=== PATIENT | female | born 1945 | race American Indian/Alaskan Native ===

== ENCOUNTER 2017-11-18 13:02 | Outpatient (CLI) | payer MEDICARE ==
--- NOTE | 2017-11-18 16:37 | XRay Report ---
FINAL REPORT EXAM: XR SPINE LUMBOSACRAL 4+V HISTORY: LOWER BACK PAIN TECHNIQUE: AP, lateral, bilateral oblique, and coned-down views of the lumbar spine PRIORS: None. FINDINGS: The vertebral body heights are well maintained. There is mild disc space narrowing L5-S1 and L2-L3. Bilateral facet joint degenerative changes from L3 through S1 are present. The alignment is normal. No evidence for spondylolysis or spondylolisthesis is seen. Pedicles are intact bilaterally at all levels. The paraspinal soft tissues are unremarkable. IMPRESSION: Degenerative disc changes at L2-L3 and L5-S1. Bilateral facet joint degenerative changes in the lower half the lumbar spine.
== END 2017-11-18 13:03 | disposition home or self-care (01) ==
LOC: XRAY 13:02
PROVIDERS: ATTEND Internal Medicine
DX: M47.896 Other spondylosis, lumbar region (principal); M12.88 Other specific arthropathies, not elsewhere classified, other specified site
CPT/HCPCS: 72110

== ENCOUNTER 2018-02-10 11:01 | Outpatient (CLI) | payer MEDICARE ==
--- NOTE | 2018-02-10 21:46 | Cat Scan Report ---
FINAL REPORT PROCEDURE: CT SINUSES WO CON TECHNIQUE: Computerized axial tomography of the paranasal sinuses was performed without contrast material. Axial, coronal, and sagittal multiplanar reformatted images were created from the original dataset. HISTORY: Chronic rhinitis COMPARISON: No prior studies are available for comparison. FINDINGS: There is evidence of a bilateral maxillary antrostomy. Bilateral inferior turbinate hypertrophy is identified. There is opacification of a few right anterior ethmoid air cells. No evidence of any bony erosion or destruction is identified. There is no significant deviation of the nasal septum. Bilateral orbital merino and contents including eye balls and retrobulbar structures are within normal limits. Bilateral temporomandibular joints demonstrate normal alignment. Bilateral mastoid air cells are clear. IMPRESSION: Impression Mild degree of right anterior ethmoidal chronic sinusitis No evidence of acute sinusitis Bilateral inferior turbinate hypertrophy
== END 2018-02-10 11:02 | disposition home or self-care (01) ==
LOC: CT 11:01
PROVIDERS: ATTEND Otolaryngology
DX: J32.2 Chronic ethmoidal sinusitis (principal); J34.3 Hypertrophy of nasal turbinates; E78.00 Pure hypercholesterolemia, unspecified; I10 Essential (primary) hypertension; J45.909 Unspecified asthma, uncomplicated; K21.9 Gastro-esophageal reflux disease without esophagitis; M19.90 Unspecified osteoarthritis, unspecified site; Z90.721 Acquired absence of ovaries, unilateral; Z90.89 Acquired absence of other organs
CPT/HCPCS: 70486

== ENCOUNTER 2018-11-01 10:46 | Inpatient (IN) | payer MEDICARE ==
--- NOTE | 2018-11-01 11:12 | Cat Scan Report ---
CT HEAD WITHOUT CONTRAST: HISTORY: Neurological deficit, stroke. TECHNIQUE: Sequential 2.5mm CT images. COMPARISON: none. FINDINGS: Cerebral Parenchyma: Mild nonspecific chronic white matter changes are identified in both frontal lobes. The remaining brain parenchyma demonstrates normal attenuation. Cerebellum: A chronic 1.4 cm infarct is identified in the posterior right cerebellum. There also appears to be a small subarachnoid cyst in the superior posterior fossa adjacent to the cerebellar vermis measuring up to 1.9 x 1.0 cm. Brainstem: Within normal limits. Ventricles: Normal. Sella: Normal. Extra-axial spaces: Normal. Basal Cisterns: Normal. Intracranial Hemorrhage: None. Midline Shift: None. Calvarium: Normal. Sinuses: Normal. Mastoid Air Cells: Normal. Visualized Orbits: Normal. IMPRESSION: No acute intracranial process. Mild nonspecific chronic white matter changes. Chronic right cerebellar infarct. Small posterior fossa arachnoid cyst of doubtful clinical significance. These findings were discussed with Dr. Foreman/Dr. Henry in the emergency department at 1106 hrs.
[2018-11-01 11:18] LABS: Basophils # (Auto) 0.1 K/mm3 (0.0-0.1); Eosinophils % (Auto) 0.5 % (0.0-4.3); Hematocrit 35.6 % (30.3-42.9); Hemoglobin 11.9 gm/dl (10.1-14.3); Lymphocytes # (Auto) 2.7 K/mm3 (1.2-5.4); Lymphocytes % (Auto) 41.6 % (13.4-35.0); Mean Corpuscular HGB Conc 34 % (30-34); Mean Corpuscular Volume 76 fl (79-97); Monocytes # (Auto) 0.5 K/mm3 (0.0-0.8); Monocytes % (Auto) 7.9 % (0.0-7.3); Platelet Count 311 K/mm3 (140-440); Red Cell Distribution Width 15.3 % (13.2-15.2)
--- NOTE | 2018-11-01 11:27 | Emergency Department Report ---
ED Neuro Deficit HPI - General Chief Complaint: Neuro Symptoms/Deficit Stated Complaint: LFT SIDE NUMB/KATE Source: patient Mode of arrival: Ambulatory Limitations: No Limitations - History of Present Illness Initial Comments: [facility] Date of service: 11/01/18 Impression: acute, transient L sided numbness - now resolved. concerning for R parietal TIA. Recommend admission for TIA. - - - Not a tpa candidate due to: NIHSS 0 with nondisabling symptoms. Presentation is not suggestive of Large Vessel Occlusive Disease. Thrombectomy would not be recommended. Differential Diagnosis: 1. Cardioembolic stroke 2. Small vessel disease/lacune 3. Thromboembolic, vibusl-om-rrvsni mechanism 4. Hypercoagulable state-related infarct 5. Transient ischemic attack 6. Thrombotic mechanism, large artery disease Comments: Door time: 1046 [facility] contacted: 1110 [facility] at bedside: 1113 NIHSS assessment time: 1117 Recommendations: tele ASA DVT proph - lovenox permissive htn PT/OT/speech bedside swallow eval Inpatient neurology consultation Inpatient stroke evaluation as per Neurology/ Internal Medicine Discussed with ED MD Please call with questions CC L sided numbness History of Present Illness Patient is a73 yo woman with acute onset L sided numbness, involving the face, arm, and leg, starting at approx 0800. She was awake when it started. She states the numbness started in her leg, then moved the arm and face, and then resolved in reverse. It took approx 1 hour to resolved. No LOC/convulsion. No trouble speaking/swallowing. Diagnostic: CT head pending. Exam: RESULT SUMMARY: 0 points NIH Stroke Scale INPUTS: 1A: Level of consciousness > 0 = Alert; keenly responsive 1B: Ask month and age > 0 = Both questions right 1C: 'Blink eyes' & 'squeeze hands' > 0 = Performs both tasks 2: Horizontal extraocular movements > 0 = Normal 3: Visual hernandez > 0 = No visual loss 4: Facial palsy > 0 = Normal symmetry 5A: Left arm motor drift > 0 = No drift for 10 seconds 5B: Right arm motor drift > 0 = No drift for 10 seconds 6A: Left leg motor drift > 0 = No drift for 5 seconds 6B: Right leg motor drift > 0 = No drift for 5 seconds 7: Limb Ataxia > 0 = No ataxia 8: Sensation > 0 = Normal; no sensory loss 9: Language/aphasia > 0 = Normal; no aphasia 10: Dysarthria > 0 = Normal 11: Extinction/inattention > 0 = No abnormality Medical Decision Making: - Extensive number of diagnosis or management options are considered above. - Extensive amount of complex data reviewed. - High risk of complication and/or morbidity or mortality are associated with differential diagnostic considerations above. - There may be Uncertain outcome and increased probability of prolonged functional impairment or high probability of severe prolonged functional impairment associated with some of these differential diagnosis. Medical Data Reviewed: 1.Data reviewed include clinical labs, radiology, Medical Tests; 2.Tests results discussed w/performing or interpreting physician; 3.Obtaining/reviewing old medical records; 4.Obtaining case history from another source; 5.Independent review of image, tracing or specimen. Patient was informed the Neurology Consult would happen via TeleHealth consult by way of interactive audio and video telecommunications and consented to receiving care in this manner. - Related Data Home Medications: Home Medications Medication Instructions Recorded Confirmed Last Taken Metoprolol [Lopressor TAB] 50 mg DAILY 03/30/13 10/22/15 10/22/15 08:00 50 mg Simvastatin 20 mg PO QDAY 03/30/13 10/22/15 10/22/15 08:00 amLODIPine [Norvasc] 5 mg PO DAILY 03/30/13 10/22/15 10/22/15 08:00 Aspirin 81 mg PO DAILY 10/22/15 10/22/15 10/22/15 08:00 Levothyroxine 50 mcg PO DAILY 10/22/15 10/22/15 10/22/15 08:00 Triamterene 1.75 mg PO DAILY 10/22/15 10/22/15 10/22/15 08:00 Previous Rx's Medication Instructions Recorded Last Taken Type Omeprazole [PriLOSEC] 20 mg PO QDAY #30 05/04/13 10/21/15 08:00 Rx Amoxicillin [Trimox CAP] 500 mg PO BID #14 capsule 10/22/15 Unknown Rx traMADol [Ultram] 50 mg PO Q6HR PRN #14 tablet 10/22/15 Unknown Rx Allergies/Adverse Reactions: Allergies Allergy/AdvReac Type Severity Reaction Status Date / Time Sulfa (Sulfonamide Allergy Severe Swelling Verified 05/04/13 07:36 Antibiotics) ED Review of Systems ROS: Stated complaint: LFT SIDE NUMB/KATE Other details as noted in HPI ED Past Medical Hx - Past Medical History Previous Medical History?: Yes Hx Hypertension: Yes (2006) Hx GERD: Yes Hx Renal Disease: No Hx Arthritis: Yes Hx Asthma: Yes - Surgical History Past Surgical History?: Yes Hx Pacemaker: Yes (PLACED 02/2009 MODEL NUM [id number] [employer] ) - Social History Smoking Status: Never Smoker Substance Use Type: None - Medications Home Medications: Home Medications Medication Instructions Recorded Confirmed Last Taken Type Metoprolol [Lopressor TAB] 50 mg DAILY 03/30/13 10/22/15 10/22/15 08:00 History 50 mg Simvastatin 20 mg PO QDAY 03/30/13 10/22/15 10/22/15 08:00 History amLODIPine [Norvasc] 5 mg PO DAILY 03/30/13 10/22/15 10/22/15 08:00 History Omeprazole [PriLOSEC] 20 mg PO QDAY #30 05/04/13 10/22/15 10/21/15 08:00 Rx Amoxicillin [Trimox CAP] 500 mg PO BID #14 capsule 10/22/15 Unknown Rx Aspirin 81 mg PO DAILY 10/22/15 10/22/15 10/22/15 08:00 History Levothyroxine 50 mcg PO DAILY 10/22/15 10/22/15 10/22/15 08:00 History Triamterene 1.75 mg PO DAILY 10/22/15 10/22/15 10/22/15 08:00 History traMADol [Ultram] 50 mg PO Q6HR PRN #14 tablet 10/22/15 Unknown Rx ED Neuro Physical Exam - General Limitations: No Limitations Suspected Stroke: Yes - NIHSS Assessment Interval: Baseline 1a. Level of Consciousness: alert/keenly responsive 1b. LOC Questions: answers both correctly 1c. LOC Commands: performs tasks correctly 2. Best Gaze: normal 3. Visual: no visual loss 4. Facial Palsy: normal symmetrical movement 5b. Motor Arm Right: no drift 5a. Motor Arm Left: no drift 6a. Motor Leg Left: no drift 6b. Motor Leg Right: no drift 7. Limb Ataxia: absent 8. Sensory: normal 9. Best Language: no aphasia 10. Dysarthria: normal 11. Extinction/Inattention: no abnormality Total Score: 0 Stroke Severity: No Stroke Symptoms - Lab Data Result diagrams: 11/01/18 11:14 Lab Results 11/01/18 11/01/18 Range/Units 11:00 11:14 Metcalfe % (Auto) 7.9 H (0.0-7.3) % Eos % (Auto) 0.5 (0.0-4.3) % Metcalfe # 0.5 (0.0-0.8) K/mm3 Eos # 0.0 (0.0-0.4) K/mm3 Baso # 0.1 (0.0-0.1) K/mm3 Seg Neutrophils % 49.0 (40.0-70.0) % Seg Neutrophils # 3.2 (1.8-7.7) K/mm3 POC Glucose 102 (70-105) Critical care attestation.: If time is entered above; I have spent that time in minutes in the direct care of this critically ill patient, excluding procedure time. ED Disposition Clinical Impression: TIA (transient ischemic attack) Disposition: -09 OP ADMIT IP TO THIS HOSP Is pt being admited?: Yes Condition: Stable
[2018-11-01 11:29] LABS: INR 0.96 (0.87-1.13)
[2018-11-01 11:30] LABS: Partial Thromboplastin Time 26.8 Sec. (24.2-36.6)
[2018-11-01 11:42] LABS: BUN/Creatinine Ratio 13; Blood Urea Nitrogen 15 mg/dL (7-17); Calcium 9.5 mg/dL (8.4-10.2); Hemolysis Index 20
[2018-11-01] MEDS ORDERED: PHENERGAN PR PRN (12:44)
[2018-11-01] MEDS ORDERED: SODIUM CHLORIDE FLUSH SYRINGE 10 ML IV PRN (12:44)
[2018-11-01] MEDS ORDERED: ZOFRAN IV PRN (12:44)
[2018-11-01] MEDS ORDERED: MILK OF MAGNESIA PO PRN (12:44)
[2018-11-01] MEDS ORDERED: DULCOLAX PR PRN (12:44)
[2018-11-01] MEDS ORDERED: TYLENOL PO PRN (12:44)
[2018-11-01] MEDS ORDERED: REGLAN PO PRN (12:44)
[2018-11-01] MEDS ORDERED: PROVENTIL IH PRN (12:44)
--- NOTE | 2018-11-01 12:44 | History and Physical Report ---
History of Present Illness Chief complaint: My left side got weak. History of present illness: 73 YO Female with HTN, GERD, OA, Asthma, Cardiomyopathy S/P Pacemaker placement presents to ED for evaluation. Pt states that she was in her usual state of health at bedtime around 2130hrs. Upon awakening from sleep around 0800hrs, the patient experienced weakness and numbness on her left side and that she is "unable to move the left side of her body". Pt transported to [facility] via private vehicle. Pt seen and evaluated in ED and a Code Stroke was called. The patient was found to have symptoms consistent with CVA. Pt is outside therapeutic window for TPA. Pt admitted to Telemetry and initiated on CVA protocol. Pt denies fever, chills, CP, Palpitations, NVD, Trauma, BRBPR, Productive cough, or recent ill contacts. Neurology consulted. Past History Past Medical History: arthritis, GERD, hypertension, other (Asthma, Cardiomyopathy) Past Surgical History: Other (Pacemaker placement) Social history: single. denies: smoking, alcohol abuse, prescription drug abuse Family history: no significant family history Medications and Allergies Allergies Allergy/AdvReac Type Severity Reaction Status Date / Time Sulfa (Sulfonamide Allergy Severe Swelling Verified 05/04/13 07:36 Antibiotics) Home Medications Medication Instructions Recorded Confirmed Last Taken Type RX: Metoprolol [Lopressor TAB] 50 mg DAILY 03/30/13 10/22/15 10/22/15 08:00 History 50 mg RX: Simvastatin 20 mg PO QDAY 03/30/13 10/22/15 10/22/15 08:00 History RX: amLODIPine [Norvasc] 5 mg PO DAILY 03/30/13 10/22/15 10/22/15 08:00 History RX: Omeprazole [PriLOSEC] 20 mg PO QDAY #30 05/04/13 10/22/15 10/21/15 08:00 Rx Aspirin 81 mg PO DAILY 10/22/15 10/22/15 10/22/15 08:00 History Levothyroxine 50 mcg PO DAILY 10/22/15 10/22/15 10/22/15 08:00 History RX: Amoxicillin [Trimox CAP] 500 mg PO BID #14 capsule 10/22/15 Unknown Rx Triamterene 1.75 mg PO DAILY 10/22/15 10/22/15 10/22/15 08:00 History traMADol [Ultram] 50 mg PO Q6HR PRN #14 tablet 10/22/15 Unknown Rx Review of Systems Constitutional: no weight loss, no weight gain, no fever, no chills Ears, nose, mouth and throat: no ear pain, no ear discharge, no tinnitis, no decreased hearing, no nose pain Breasts: no change in shape, no swelling, no mass Cardiovascular: no chest pain, no orthopnea, no palpitations, no rapid/irregular heart beat, no edema Respiratory: no cough, no excessive sputum, no hemoptysis Gastrointestinal: no nausea, no vomiting, no diarrhea, no constipation Genitourinary Female: no pelvic pain, no flank pain, no menorrhagia, no dysuria, no urinary frequency, no urgency Rectal: no pain, no incontinence, no bleeding Musculoskeletal: no neck stiffness, no neck pain, no shooting arm pain, no low back pain Integumentary: no rash, no pruritis, no redness, no sores, no wounds Neurological: paralysis, weakness, numbness, ataxia, gait dysfunction, motor disturbance Psychiatric: no anxiety, no memory loss, no change in sleep habits, no sleep disturbances, no insomnia Endocrine: no cold intolerance, no heat intolerance, no polyphagia Hematologic/Lymphatic: no easy bruising, no easy bleeding Allergic/Immunologic: no urticaria, no allergic rhinitis, no wheezing Exam - Constitutional Vitals: Temp Pulse Resp BP Pulse Ox 97.1 F L 71 20 146/76 96 11/01/18 11:33 11/01/18 12:00 11/01/18 12:15 11/01/18 12:15 11/01/18 12:15 General appearance: Present: mild distress - EENT Eyes: Present: PERRL ENT: hearing intact, clear oral mucosa - Neck Neck: Present: supple, normal ROM - Respiratory Respiratory effort: normal Respiratory: bilateral: CTA - Cardiovascular Heart Sounds: Present: S1 & S2. Absent: rub, click - Extremities Extremities: pulses symmetrical, No edema Peripheral Pulses: within normal limits - Abdominal General gastrointestinal: Present: soft, non-tender, non-distended, normal bowel sounds Female genitourinary: Present: normal - Integumentary Integumentary: Present: clear, warm, dry - Musculoskeletal Musculoskeletal: gait normal, strength equal bilaterally - Psychiatric Psychiatric: appropriate mood/affect, intact judgment & insight - Neurologic Neurologic: CNII-XII intact, moves all extremities Results - Labs CBC & Chem 7: 11/01/18 11:14 11/01/18 11:14 Labs: Abnormal lab results 11/01/18 11/01/18 Range/Units 11:14 11:14 MCV 76 L (79-97) fl MCH 25 L (28-32) pg RDW 15.3 H (13.2-15.2) % Lymph % (Auto) 41.6 H (13.4-35.0) % Cottle % (Auto) 7.9 H (0.0-7.3) % Carbon Dioxide 20 L (22-30) mmol/L Glucose 111 H (65-100) mg/dL Assessment and Plan - Patient Problems (1) CVA (cerebral vascular accident) Current Visit: Yes Status: Acute Qualifiers: Precerebral and cerebral artery: middle cerebral artery Laterality of affected vessel: right Plan to address problem: Stroke Protocol: CT Head, neuro checks, MRI Brain, MRA Brain, Echo, Carotid Doppler, lipid panel, antiplatelet therapy, PT/OT/Speech therapy, Neurology consulted in ED. Neuro checks, Permissive hypertension overnight. (2) Cardiomyopathy Current Visit: Yes Status: Acute Qualifiers: Cardiomyopathy type: unspecified Qualified Code(s): I42.9 - Cardiomyopathy, unspecified Plan to address problem: supportive care, Blood pressure control, monitor bp q shift, telemetry, (3) Osteoarthritis Current Visit: Yes Status: Acute Qualifiers: Laterality: bilateral Plan to address problem: pain control, supportive care, NSAID therapy as clinically indicated (4) DVT prophylaxis Current Visit: Yes Status: Acute Plan to address problem: SCD to BLE while in bed, prophylactic lovenox
--- NOTE | 2018-11-01 13:48 | Emergency Department Report ---
ED Neuro Deficit HPI - General Chief Complaint: Neuro Symptoms/Deficit Stated Complaint: LFT SIDE NUMB/KATE Time Seen by Provider: 11/01/18 11:26 Source: patient Mode of arrival: Ambulatory Limitations: No Limitations - History of Present Illness Initial Comments: This is a 73-year-old female who arrived as a "code stroke". She has the following recommendations and differential diagnosis as per teleneurologist: acute, transient L sided numbness - now resolved. concerning for R parietal TIA. Recommend admission for TIA. Not a tpa candidate due to: NIHSS 0 with nondisabling symptoms. Presentation is not suggestive of Large Vessel Occlusive Disease. Thrombectomy would not be recommended. Differential Diagnosis: 1. Cardioembolic stroke 2. Small vessel disease/lacune 3. Thromboembolic, [id number] mechanism 4. Hypercoagulable state-related infarct 5. Transient ischemic attack 6. Thrombotic mechanism, large artery disease Essentially, the patient tells me that at between 8 and 9 in the morning she experienced numbness of her left side. She had difficulty describing the sensory aberration. However she states that it did resolve within about 15 minutes. She states that she is additionally may have had difficulty moving her "feet". When asked which she stated it was her left foot. The difficulty in moving her feet or foot was of seconds duration. The patient denied headache. She denied neck pain. She denied difficulty with her speech. She is thought to have a history of previous stroke. At the time of my encounter the patient is asymptomatic. -: Gradual Location: left arm, left leg Presenting Symptoms: Absent: Weak/Paralyzed One Side, Sudden, Severe Headache, Blurred/Loss of Vision, Facial Droop/Numbness, Unable to Speak Clearly, Altered Mental Status History of same: Yes Place: home Severity: mild Quality: weak (either 1 foot or both), numb Improves With: rest (resolved spontaneously) Worsens With: none On Anticoagulants: No Context: gradual onset Associated Symptoms: denies other symptoms Treatments Prior to Arrival: none - Related Data Home Medications: Home Medications Medication Instructions Recorded Confirmed Last Taken Metoprolol [Lopressor TAB] 50 mg DAILY 03/30/13 10/22/15 10/22/15 08:00 50 mg Simvastatin 20 mg PO QDAY 03/30/13 10/22/15 10/22/15 08:00 amLODIPine [Norvasc] 5 mg PO DAILY 03/30/13 10/22/15 10/22/15 08:00 Aspirin 81 mg PO DAILY 10/22/15 10/22/15 10/22/15 08:00 Levothyroxine 50 mcg PO DAILY 10/22/15 10/22/15 10/22/15 08:00 Triamterene 1.75 mg PO DAILY 10/22/15 10/22/15 10/22/15 08:00 Previous Rx's Medication Instructions Recorded Last Taken Type Omeprazole [PriLOSEC] 20 mg PO QDAY #30 05/04/13 10/21/15 08:00 Rx Amoxicillin [Trimox CAP] 500 mg PO BID #14 capsule 10/22/15 Unknown Rx traMADol [Ultram] 50 mg PO Q6HR PRN #14 tablet 10/22/15 Unknown Rx Allergies/Adverse Reactions: Allergies Allergy/AdvReac Type Severity Reaction Status Date / Time Sulfa (Sulfonamide Allergy Severe Swelling Verified 05/04/13 07:36 Antibiotics) ED Review of Systems ROS: Stated complaint: LFT SIDE NUMB/KATE Other details as noted in HPI Constitutional: denies: chills, fever Eyes: denies: eye pain, eye discharge, vision change ENT: denies: ear pain, throat pain Respiratory: denies: cough, shortness of breath, wheezing Cardiovascular: denies: chest pain, palpitations Endocrine: no symptoms reported Gastrointestinal: denies: abdominal pain, nausea, diarrhea Genitourinary: denies: urgency, dysuria, discharge Musculoskeletal: denies: back pain, joint swelling, arthralgia Skin: denies: rash, lesions Neurological: as per HPI, weakness, numbness. denies: headache Psychiatric: denies: anxiety, depression Hematological/Lymphatic: denies: easy bleeding, easy bruising ED Past Medical Hx - Past Medical History Previous Medical History?: Yes Hx Hypertension: Yes (2006) Hx GERD: Yes Hx Renal Disease: No Hx Arthritis: Yes Hx Asthma: Yes - Surgical History Past Surgical History?: Yes Hx Pacemaker: Yes (PLACED 02/2009 MODEL NUM [id number] [email or web address] ) - Social History Smoking Status: Never Smoker Substance Use Type: None - Medications Home Medications: Home Medications Medication Instructions Recorded Confirmed Last Taken Type Metoprolol [Lopressor TAB] 50 mg DAILY 03/30/13 10/22/15 10/22/15 08:00 History 50 mg Simvastatin 20 mg PO QDAY 03/30/13 10/22/15 10/22/15 08:00 History amLODIPine [Norvasc] 5 mg PO DAILY 03/30/13 10/22/15 10/22/15 08:00 History Omeprazole [PriLOSEC] 20 mg PO QDAY #30 05/04/13 10/22/15 10/21/15 08:00 Rx Amoxicillin [Trimox CAP] 500 mg PO BID #14 capsule 10/22/15 Unknown Rx Aspirin 81 mg PO DAILY 10/22/15 10/22/15 10/22/15 08:00 History Levothyroxine 50 mcg PO DAILY 10/22/15 10/22/15 10/22/15 08:00 History Triamterene 1.75 mg PO DAILY 10/22/15 10/22/15 10/22/15 08:00 History traMADol [Ultram] 50 mg PO Q6HR PRN #14 tablet 10/22/15 Unknown Rx ED Neuro Physical Exam - General Limitations: No Limitations General appearance: alert, in no apparent distress Suspected Stroke: No (stroke is a consideration, more consistent with TIA) - Head Head exam: Present: atraumatic, normocephalic - Eye Eye exam: Present: normal appearance. Absent: scleral icterus - ENT ENT exam: Present: mucous membranes moist - Neck Neck exam: Present: normal inspection, other (no bruit appreciated). Absent: tenderness, meningismus - Respiratory Respiratory exam: Present: normal lung sounds bilaterally. Absent: respiratory distress - Cardiovascular Cardiovascular Exam: Present: regular rate, normal rhythm. Absent: systolic murmur, diastolic murmur, rubs, gallop - GI/Abdominal GI/Abdominal exam: Present: soft, normal bowel sounds. Absent: distended, tenderness, guarding, rebound, rigid - Extremities Exam Extremities exam: Present: normal inspection - Back Exam Back exam: Present: normal inspection - Neurological Exam Neurological exam: Present: alert, oriented X3, CN II-XII intact. Absent: motor sensory deficit - NIHSS Assessment Interval: Baseline 1a. Level of Consciousness: alert/keenly responsive 1b. LOC Questions: answers both correctly 1c. LOC Commands: performs tasks correctly 2. Best Gaze: normal 3. Visual: no visual loss 4. Facial Palsy: normal symmetrical movement 5b. Motor Arm Right: no drift 5a. Motor Arm Left: no drift 6a. Motor Leg Left: no drift 6b. Motor Leg Right: no drift 7. Limb Ataxia: absent 8. Sensory: normal 9. Best Language: no aphasia 10. Dysarthria: normal 11. Extinction/Inattention: no abnormality Total Score: 0 Stroke Severity: No Stroke Symptoms - Psychiatric Psychiatric exam: Present: normal affect, normal mood - Skin Skin exam: Present: warm, dry, intact, normal color. Absent: rash ED Course Vital Signs 11/01/18 11/01/18 11/01/18 11:07 11:15 11:30 Temperature Pulse Rate 76 73 Respiratory 17 22 Rate Blood Pressure 148/77 158/95 137/82 O2 Sat by Pulse 98 97 97 Oximetry 11/01/18 11/01/18 11/01/18 11:33 11:45 12:00 Temperature 97.1 F L Pulse Rate 80 72 71 Respiratory 16 22 20 Rate Blood Pressure 141/80 145/87 145/87 O2 Sat by Pulse 100 97 Oximetry 11/01/18 12:15 Temperature Pulse Rate Respiratory 20 Rate Blood Pressure 146/76 O2 Sat by Pulse 96 Oximetry - Reevaluation(s) Reevaluation #1: The patient had no recurrent symptoms while here in the emergency department. She certainly is at risk for cardioembolic phenomenon having a pacemaker and cardiomyopathy. However her NIH stroke score is 0. She has no indication for TPA. It is possible she had a TIA this morning. She will be admitted for further care and stroke evaluation by the hospitalist service. 11/01/18 14:00 - Lab Data Result diagrams: 11/01/18 11:14 11/01/18 11:14 Lab Results 11/01/18 11/01/18 11/01/18 Range/Units 11:00 11:14 11:14 WBC 6.6 (4.5-11.0) K/mm3 RBC 4.70 (3.65-5.03) M/mm3 Hgb 11.9 (10.1-14.3) gm/dl Hct 35.6 (30.3-42.9) % MCV 76 L (79-97) fl MCH 25 L (28-32) pg MCHC 34 (30-34) % RDW 15.3 H (13.2-15.2) % Plt Count 311 (140-440) K/mm3 Lymph % (Auto) 41.6 H (13.4-35.0) % [place] % (Auto) 7.9 H (0.0-7.3) % Eos % (Auto) 0.5 (0.0-4.3) % Baso % (Auto) 1.0 (0.0-1.8) % Lymph # 2.7 (1.2-5.4) K/mm3 [place] # 0.5 (0.0-0.8) K/mm3 Eos # 0.0 (0.0-0.4) K/mm3 Baso # 0.1 (0.0-0.1) K/mm3 Seg Neutrophils % 49.0 (40.0-70.0) % Seg Neutrophils # 3.2 (1.8-7.7) K/mm3 PT 13.4 (12.2-14.9) Sec. INR 0.96 (0.87-1.13) APTT 26.8 (24.2-36.6) Sec. Thrombin Time (15.1-19.6) Sec. Sodium (137-145) mmol/L Potassium (3.6-5.0) mmol/L Chloride (98-107) mmol/L Carbon Dioxide (22-30) mmol/L Anion Gap mmol/L BUN (7-17) mg/dL Creatinine (0.7-1.2) mg/dL Estimated GFR ml/min BUN/Creatinine Ratio % Glucose (65-100) mg/dL POC Glucose 102 (70-105) Calcium (8.4-10.2) mg/dL Troponin T (0.00-0.029) ng/mL 11/01/18 11/01/18 Range/Units 11:14 11:14 WBC (4.5-11.0) K/mm3 RBC (3.65-5.03) M/mm3 Hgb (10.1-14.3) gm/dl Hct (30.3-42.9) % MCV (79-97) fl MCH (28-32) pg MCHC (30-34) % RDW (13.2-15.2) % Plt Count (140-440) K/mm3 Lymph % (Auto) (13.4-35.0) % [place] % (Auto) (0.0-7.3) % Eos % (Auto) (0.0-4.3) % Baso % (Auto) (0.0-1.8) % Lymph # (1.2-5.4) K/mm3 [place] # (0.0-0.8) K/mm3 Eos # (0.0-0.4) K/mm3 Baso # (0.0-0.1) K/mm3 Seg Neutrophils % (40.0-70.0) % Seg Neutrophils # (1.8-7.7) K/mm3 PT (12.2-14.9) Sec. INR (0.87-1.13) APTT (24.2-36.6) Sec. Thrombin Time 16.3 (15.1-19.6) Sec. Sodium 137 (137-145) mmol/L Potassium 4.3 (3.6-5.0) mmol/L Chloride 100.4 (98-107) mmol/L Carbon Dioxide 20 L (22-30) mmol/L Anion Gap 21 mmol/L BUN 15 (7-17) mg/dL Creatinine 1.2 (0.7-1.2) mg/dL Estimated GFR 53 ml/min BUN/Creatinine Ratio 13 % Glucose 111 H (65-100) mg/dL POC Glucose (70-105) Calcium 9.5 (8.4-10.2) mg/dL Troponin T < 0.010 (0.00-0.029) ng/mL Interpretation: other (ventricular pacing with complete capture) - Radiology Data Radiology results: report reviewed IMPRESSION: No acute intracranial process. Mild nonspecific chronic white matter changes. Chronic right cerebellar infarct. Small posterior fossa arachnoid cyst of doubtful clinical significance. - Core Measures AMI Core Measures Followed: No Measure Exclusions: not indicated - Thrombolytic Inclusion/Exclusion Thrombolytic Contraindications: Rapidily Improving s/s Critical care attestation.: If time is entered above; I have spent that time in minutes in the direct care of this critically ill patient, excluding procedure time. ED Disposition Clinical Impression: TIA (transient ischemic attack) Cardiomyopathy Qualifiers: Cardiomyopathy type: unspecified Qualified Code(s): I42.9 - Cardiomyopathy, unspecified Disposition: OP ADMIT IP TO THIS HOSP Is pt being admited?: Yes Does the pt Need Aspirin: Yes Condition: Stable Time of Disposition: 14:01
[2018-11-01] MEDS ORDERED: ASPIRIN PO ONE ×2 (14:01→19:00)
--- NOTE | 2018-11-01 14:26 | XRay Report ---
AP CHEST: HISTORY: Hypertension A 3-lead pacemaker device is in position. AP view of the chest demonstrates a normal mediastinal and cardiac contour with clear lungs and normal bony and soft tissue structures. IMPRESSION: Unremarkable AP chest. No significant change since 10/22/15.
--- NOTE | 2018-11-01 15:39 | Vascular Lab Report ---
PROCEDURE: VL CAROTID DUPLEX BILAT TECHNIQUE: Carotid duplex Doppler ultrasound. Grayscale, color flow and spectral waveform imaging. HISTORY: stroke COMPARISON: None FINDINGS: There is no abnormal elevation of flow velocity involving right or left carotid arteries. The ICA/CCA velocity ratios are 0.75 and 0.66 on right and left respectively. There is a small amount of atheros clerotic plaque. Findings indicate stenoses without hemodynamic significance (less than 50% bilateral ly). Portable artery flow is antegrade bilaterally. There is incidental visualization of a thyroid cyst measuring about 5 mm. IMPRESSION: No evidence of hemodynamically significant stenosis. This document is electronically signed by Francine Jain MD., Nov 01 2018 03:37:03 PM ET
--- NOTE | 2018-11-01 16:20 | Progress Note ---
Subjective Date of service: 11/01/18 Interval history: patient seen and has lasrge deep white matter stroke of the right hemisphere no bleed she can not have an ECHO due to her having pacemaker await ECH to carotid u/s does not show stenosis full note dictated Objective - Vital Sign Vital Signs - 12hr 11/01/18 11/01/18 11/01/18 11:07 11:15 11:30 Temperature Pulse Rate 76 73 Respiratory 17 22 Rate Blood Pressure 148/77 158/95 137/82 O2 Sat by Pulse 98 97 97 Oximetry 11/01/18 11/01/18 11/01/18 11:33 11:45 12:00 Temperature 97.1 F L Pulse Rate 80 72 71 Respiratory 16 22 20 Rate Blood Pressure 141/80 145/87 145/87 O2 Sat by Pulse 100 97 Oximetry 11/01/18 12:15 Temperature Pulse Rate Respiratory 20 Rate Blood Pressure 146/76 O2 Sat by Pulse 96 Oximetry - Laboratory Findings CBC and BMP: 11/01/18 11:14 11/01/18 11:14 Abnormal Lab Findings: Abnormal Labs 11/01/18 11/01/18 11:14 11:14 MCV 76 L MCH 25 L RDW 15.3 H Lymph % (Auto) 41.6 H [place] % (Auto) 7.9 H Carbon Dioxide 20 L Glucose 111 H
--- NOTE | 2018-11-02 02:08 | Consultation ---
HISTORY OF PRESENT ILLNESS: This is a 73-year-old black female that entered [facility] with onset of severe weakness of the left side. She had acute onset of weakness while she was at home involving face, arm, and leg. She has a prior history of having a pacemaker insertion 5 years ago. Since this incident, she has had persistent weakness, double vision, problems with vision in the left eye. The patient had a very prominent weakness of her left side, the leg and then the arm. On reviewing her CT scan, there is area of hypodensity noted in the right deep white matter of the right hemisphere and this is quite well-visualized on several sequences, evidence of ischemic stroke being obviously present in the right hemisphere deep white matter in the frontal lobe. PHYSICAL EXAMINATION: HEENT: The patient has asymmetrical gaze with the left eye moved laterally. The patient has symmetrical arm strength. Motor tone symmetrical. Burner Tender strength is equal. Visual hernandez are full. She does have blurry vision in the left eye with the left eye turned outward, but she focuses with the right eye (family does think this is a new finding). IMPRESSION: Acute stroke, right cerebral hemisphere. She cannot have an MRI. Would recommend getting carotid artery ultrasound and look at the echocardiogram. There is a prior medical history of pacemaker insertion. The patient will review over the MRI. Echocardiogram will be interesting to review and that she has had prior history of pacemaker, although no history of atrial fibrillation. JOB# [id number] MARCEL/ZAK
[2018-11-02] MEDS: LOVENOX SUB-Q SCH (09:58)
[2018-11-02] MEDS ORDERED: LOVENOX SUB-Q SCH (10:00)
--- NOTE | 2018-11-02 16:07 | Progress Note ---
Subjective Date of service: 11/02/18 Interval history: I am aware of fact MRI cancelled as she has pacemaker recommend another CT of heas with contrst on Thursday Objective - Vital Sign Vital Signs - 12hr 11/02/18 11/02/18 04:32 11:50 Temperature 98.3 F 97.9 F Pulse Rate 69 87 Respiratory 16 18 Rate Blood Pressure 144/80 144/76 O2 Sat by Pulse 100 98 Oximetry - Laboratory Findings CBC and BMP: 11/01/18 11:14 11/01/18 11:14 Abnormal Lab Findings: Abnormal Labs 11/01/18 11/01/18 11:14 11:14 MCV 76 L MCH 25 L RDW 15.3 H Lymph % (Auto) 41.6 H [place] % (Auto) 7.9 H Carbon Dioxide 20 L Glucose 111 H
[2018-11-02 16:37] LABS: Chol/HDL Ratio 2.31 %
--- NOTE | 2018-11-02 18:44 | Progress Note ---
Assessment and Plan Assessment and plan: (1) CVA (cerebral vascular accident) Current Visit: Yes Status: Acute Qualifiers: Precerebral and cerebral artery: middle cerebral artery Laterality of affected vessel: right Plan to address problem: Stroke Protocol: CT Head, neuro checks, MRI Brain, MRA Brain, Echo, Carotid Doppler, lipid panel, antiplatelet therapy, PT/OT/Speech therapy, Neurology consulted in ED. Neuro checks, Permissive hypertension overnight. (2) Cardiomyopathy Current Visit: Yes Status: Acute Qualifiers: Cardiomyopathy type: unspecified Qualified Code(s): I42.9 - Cardiomyopathy, unspecified Plan to address problem: supportive care, Blood pressure control, monitor bp q shift, telemetry, (3) Osteoarthritis Current Visit: Yes Status: Acute Qualifiers: Laterality: bilateral Plan to address problem: pain control, supportive care, NSAID therapy as clinically indicated (4) DVT prophylaxis Current Visit: Yes Status: Acute Plan to address problem: SCD to BLE while in bed, prophylactic lovenox Plan of care reviewed with the patient and her nurse History Interval history: Patient seen and examined medical records reviewed Patient feels slightly better Neuro workup is in progress Unable to do MRI due to permanent pacemaker No new complaints ,vital signs stable Hospitalist Physical - Constitutional Vitals: Temp Pulse Resp BP Pulse Ox 98.6 F 84 18 135/87 100 11/02/18 16:55 11/02/18 16:55 11/02/18 16:55 11/02/18 16:55 11/02/18 16:55 General appearance: Present: no acute distress, well-nourished - EENT Eyes: Present: PERRL, EOM intact - Neck Neck: Present: supple, normal ROM - Respiratory Respiratory effort: normal Respiratory: bilateral: diminished, negative: rales, rhonchi, wheezing - Cardiovascular Rhythm: regular Heart Sounds: Present: S1 & S2 - Extremities Extremities: no ischemia, No edema - Abdominal General gastrointestinal: soft, non-tender, non-distended, normal bowel sounds - Integumentary Integumentary: Present: clear, warm - Psychiatric Psychiatric: appropriate mood/affect, cooperative - Neurologic Neurologic: CNII-XII intact, moves all extremities Results - Labs CBC & Chem 7: 11/01/18 11:14 11/01/18 11:14 Labs: Laboratory Last Values WBC 6.6 K/mm3 (4.5-11.0) 11/01/18 11:14 RBC 4.70 M/mm3 (3.65-5.03) 11/01/18 11:14 Hgb 11.9 gm/dl (10.1-14.3) 11/01/18 11:14 Hct 35.6 % (30.3-42.9) 11/01/18 11:14 MCV 76 fl (79-97) L 11/01/18 11:14 MCH 25 pg (28-32) L 11/01/18 11:14 MCHC 34 % (30-34) 11/01/18 11:14 RDW 15.3 % (13.2-15.2) H 11/01/18 11:14 Plt Count 311 K/mm3 (140-440) 11/01/18 11:14 Lymph % (Auto) 41.6 % (13.4-35.0) H 11/01/18 11:14 [place] % (Auto) 7.9 % (0.0-7.3) H 11/01/18 11:14 Eos % (Auto) 0.5 % (0.0-4.3) 11/01/18 11:14 Baso % (Auto) 1.0 % (0.0-1.8) 11/01/18 11:14 Lymph # 2.7 K/mm3 (1.2-5.4) 11/01/18 11:14 [place] # 0.5 K/mm3 (0.0-0.8) 11/01/18 11:14 Eos # 0.0 K/mm3 (0.0-0.4) 11/01/18 11:14 Baso # 0.1 K/mm3 (0.0-0.1) 11/01/18 11:14 Seg Neutrophils % 49.0 % (40.0-70.0) 11/01/18 11:14 Seg Neutrophils # 3.2 K/mm3 (1.8-7.7) 11/01/18 11:14 PT 13.4 Sec. (12.2-14.9) 11/01/18 11:14 INR 0.96 (0.87-1.13) 11/01/18 11:14 APTT 26.8 Sec. (24.2-36.6) 11/01/18 11:14 16.3 Sec. (15.1-19.6) 11/01/18 11:14 Sodium 137 mmol/L (137-145) 11/01/18 11:14 Potassium 4.3 mmol/L (3.6-5.0) 11/01/18 11:14 Chloride 100.4 mmol/L (98-107) 11/01/18 11:14 Carbon Dioxide 20 mmol/L (22-30) L 11/01/18 11:14 21 mmol/L 11/01/18 11:14 BUN 15 mg/dL (7-17) 11/01/18 11:14 1.2 mg/dL (0.7-1.2) 11/01/18 11:14 Estimated GFR 53 ml/min 11/01/18 11:14 13 % 11/01/18 11:14 Glucose 111 mg/dL (65-100) H 11/01/18 11:14 POC Glucose 102 (70-105) 11/01/18 11:00 Calcium 9.5 mg/dL (8.4-10.2) 11/01/18 11:14 < 0.010 ng/mL (0.00-0.029) 11/01/18 11:14 Triglycerides 214 mg/dL (2-149) H 11/02/18 15:47 Cholesterol 185 mg/dL (50-199) 11/02/18 15:47 85 mg/dL (50-130) 11/02/18 15:47 80 mg/dL (40-59) H 11/02/18 15:47 2.31 % 11/02/18 15:47 Active Medications - Current Medications Current Medications: Generic Name Dose Route Start Last Admin Trade Name Freq PRN Reason Stop Dose Admin Acetaminophen 650 mg 11/01/18 12:44 Tylenol PO Q4H PRN Pain, Mild (1-3) Albuterol 2.5 mg 11/01/18 12:44 Proventil IH Q3HRT PRN Shortness Of Breath Atorvastatin Calcium 40 mg 11/01/18 22:00 11/01/18 21:16 Lipitor PO 40 mg QHS NANDINI Administration Bisacodyl 10 mg 11/01/18 12:44 Dulcolax SC QDAY PRN Constipation Enoxaparin Sodium 40 mg 11/02/18 10:00 11/02/18 09:58 Lovenox SUB-Q 40 mg QDAY@1000 NANDINI Administration Magnesium Hydroxide 30 ml 11/01/18 12:44 Milk Of Magnesia PO Q4H PRN Constipation Metoclopramide HCl 10 mg 11/01/18 12:44 Reglan PO Q6H PRN Nausea And Vomiting Ondansetron HCl 4 mg 11/01/18 12:44 Zofran IV Q8H PRN Nausea And Vomiting Promethazine HCl 25 mg 11/01/18 12:44 Phenergan SC Q6H PRN Nausea And Vomiting Sodium Chloride 10 ml 11/01/18 12:44 Sodium Chloride Flush Syringe 10 Ml IV PRN PRN LINE FLUSH
--- NOTE | 2018-11-03 08:37 | Progress Note ---
Assessment and Plan Assessment and plan: --Acute CVA ; with strokelike symptoms Not a candidate for TPA , unable to obtain a modified due to the p.m. Recheck CT head with and without contrast as recommended by neurology rest of the neuro workup reviewed Neurology following physical therapy occupational therapy, --Cardiomyopathy ; ejection fraction 35-40% Continue current cardiac medications --PFO on ECHO, follow CT head with contrast Is positive for acute CVA, consider anticoagulation --Osteoarthritis ; pain control, supportive care, NSAID therapy as clinically indicated --Dyslipidemia; on statins --DVT prophylaxis ; SCD to BLE while in bed, prophylactic lovenox P Follow neuro workup , neurology evaluation and recommendations Plan of care reviewed with the patient and her nurse Hospitalist Physical - Constitutional Vitals: Temp Pulse Resp BP Pulse Ox 98.1 F 85 18 117/71 97 11/03/18 04:43 11/03/18 04:43 11/03/18 04:43 11/03/18 04:43 11/03/18 04:43 General appearance: Present: no acute distress, well-nourished Results - Labs CBC & Chem 7: 11/01/18 11:14 11/01/18 11:14 Labs: Laboratory Last Values WBC 6.6 K/mm3 (4.5-11.0) 11/01/18 11:14 RBC 4.70 M/mm3 (3.65-5.03) 11/01/18 11:14 Hgb 11.9 gm/dl (10.1-14.3) 11/01/18 11:14 Hct 35.6 % (30.3-42.9) 11/01/18 11:14 MCV 76 fl (79-97) L 11/01/18 11:14 MCH 25 pg (28-32) L 11/01/18 11:14 MCHC 34 % (30-34) 11/01/18 11:14 RDW 15.3 % (13.2-15.2) H 11/01/18 11:14 Plt Count 311 K/mm3 (140-440) 11/01/18 11:14 Lymph % (Auto) 41.6 % (13.4-35.0) H 11/01/18 11:14 [place] % (Auto) 7.9 % (0.0-7.3) H 11/01/18 11:14 Eos % (Auto) 0.5 % (0.0-4.3) 11/01/18 11:14 Baso % (Auto) 1.0 % (0.0-1.8) 11/01/18 11:14 Lymph # 2.7 K/mm3 (1.2-5.4) 11/01/18 11:14 [place] # 0.5 K/mm3 (0.0-0.8) 11/01/18 11:14 Eos # 0.0 K/mm3 (0.0-0.4) 11/01/18 11:14 Baso # 0.1 K/mm3 (0.0-0.1) 11/01/18 11:14 Seg Neutrophils % 49.0 % (40.0-70.0) 11/01/18 11:14 Seg Neutrophils # 3.2 K/mm3 (1.8-7.7) 11/01/18 11:14 PT 13.4 Sec. (12.2-14.9) 11/01/18 11:14 INR 0.96 (0.87-1.13) 11/01/18 11:14 APTT 26.8 Sec. (24.2-36.6) 11/01/18 11:14 16.3 Sec. (15.1-19.6) 11/01/18 11:14 Sodium 137 mmol/L (137-145) 11/01/18 11:14 Potassium 4.3 mmol/L (3.6-5.0) 11/01/18 11:14 Chloride 100.4 mmol/L (98-107) 11/01/18 11:14 Carbon Dioxide 20 mmol/L (22-30) L 11/01/18 11:14 21 mmol/L 11/01/18 11:14 BUN 15 mg/dL (7-17) 11/01/18 11:14 1.2 mg/dL (0.7-1.2) 11/01/18 11:14 Estimated GFR 53 ml/min 11/01/18 11:14 13 % 11/01/18 11:14 Glucose 111 mg/dL (65-100) H 11/01/18 11:14 POC Glucose 102 (70-105) 11/01/18 11:00 Calcium 9.5 mg/dL (8.4-10.2) 11/01/18 11:14 < 0.010 ng/mL (0.00-0.029) 11/01/18 11:14 Triglycerides 214 mg/dL (2-149) H 11/02/18 15:47 Cholesterol 185 mg/dL (50-199) 11/02/18 15:47 85 mg/dL (50-130) 11/02/18 15:47 80 mg/dL (40-59) H 11/02/18 15:47 2.31 % 11/02/18 15:47 Active Medications - Current Medications Current Medications: Generic Name Dose Route Start Last Admin Trade Name Freq PRN Reason Stop Dose Admin Acetaminophen 650 mg 11/01/18 12:44 11/02/18 20:16 Tylenol PO 650 mg Q4H PRN Administration Pain, Mild (1-3) Albuterol 2.5 mg 11/01/18 12:44 Proventil IH Q3HRT PRN Shortness Of Breath Atorvastatin Calcium 40 mg 11/01/18 22:00 11/02/18 22:18 Lipitor PO 40 mg QHS NANDINI Administration Bisacodyl 10 mg 11/01/18 12:44 Dulcolax ME QDAY PRN Constipation Enoxaparin Sodium 40 mg 11/02/18 10:00 11/02/18 09:58 Lovenox SUB-Q 40 mg QDAY@1000 NANDINI Administration Magnesium Hydroxide 30 ml 11/01/18 12:44 Milk Of Magnesia PO Q4H PRN Constipation Metoclopramide HCl 10 mg 11/01/18 12:44 Reglan PO Q6H PRN Nausea And Vomiting Ondansetron HCl 4 mg 11/01/18 12:44 Zofran IV Q8H PRN Nausea And Vomiting Promethazine HCl 25 mg 11/01/18 12:44 Phenergan ME Q6H PRN Nausea And Vomiting Sodium Chloride 10 ml 11/01/18 12:44 11/02/18 22:18 Sodium Chloride Flush Syringe 10 Ml IV 10 ml PRN PRN Administration LINE FLUSH
[2018-11-03] MEDS: LOVENOX SUB-Q SCH (10:28)
--- NOTE | 2018-11-03 10:43 | Cat Scan Report ---
CT head with and without IV contrast: Neuro deficits. Comparison made to unenhanced images on November 01, 2018. The unenhanced axial images demonstrates diminished periventricular white matter changes bilaterally. These appear to be slightly worse in the right frontal lobe but it is unclear as to whether there is an actual focal abnormality in this area. In the right vermis there is an elongated circumscribed hypodensity which on the current image measures 2.1 cm compared to the prior exam measuring 1.9 cm. This may be a technical difference. The right frontal region is unchanged as is the remainder of the exam which is not otherwise remarkable. IV injected contrasted axial images demonstrates an unremarkable arterial phase. No evidence of vascular occlusion or abnormal vascular enhancement identified. Impression: 1. White matter ischemic changes most likely explaining the asymmetry in the right frontal lobe. 2. No evidence of vascular occlusion. 3. Stable unenhanced scan compared to prior study.
[2018-11-03 15:42] VITALS: BP 142/77
--- NOTE | 2018-11-03 16:08 | Discharge Summary ---
Providers - Providers Date of Admission: 11/01/18 12:44 Date of discharge: 11/03/18 Attending physician: STEVEN TOMAS 11/01/18 Consult to Physician [CONS] Routine Comment: Consulting Provider: DEDE MAURER Physician Instructions: Reason For Exam: cva 11/01/18 12:44 Occupational Therapy Evaluate and Treat [CONS] Routine Comment: Reason For Exam: Neuro deficits Physical Therapy Evaluation and Treat [CONS] Routine Comment: Reason For Exam: Neuro deficits Primary care physician: ANA ARREDONDO Hospitalization Reason for admission: Left sided weakness Condition: Stable Pertinent studies: CT head/brain WO CT brain with contrast: white mater ischemic changed Rt frontal lobe ECHO Doppler carotid CXR Hospital course: 73 YO Female with HTN, GERD, OA, Asthma, Cardiomyopathy S/P Pacemaker placement was admitted through ER with the c/o weakness and numbness on her left side and that she is "unable to move the left side of her body".evaluated in ED and a Code Stroke was called. The patient was found to have symptoms consistent with CVA.Not a candidate for TPA. Pt admitted to Telemetry and initiated on CVA protocol had neuro w/u.Unable to get MRI in view of PPM.Patient had CT brain with contrast,no acute abnormality. Patient symptomatically managed,PT evaluated,no PT needs at this point, Advised out pt PT if new weakness is noted,to be evaluated by PMD. 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 Today patient is comfortable,no new complaints,vital signs noted Stable at discharge. Discharge Diagnosis: --Acute CVA ; Left sided weakness Not a candidate for TPA , Aspirin and statin ,unable to obtain MRI due to PPM CT head with and without contrast : Rt frontal ischemic changes. 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 upon DC --Osteoarthritis ; pain control, supportive care, NSAID therapy as clinically indicated --Dyslipidemia; on statins --DVT prophylaxis ; SCD to BLE while in bed, prophylactic lovenox Disposition: - TO HOME OR SELFCARE Time spent for discharge: 32 min Core Measure Documentation - Palliative Care Palliative Care/ Comfort Measures: Not Applicable - Core Measures Any of the following diagnoses?: stroke - Stroke Discharge Requirements Statin for LDL = or >70 mg/dl on DC: Yes Anticoag for atrial fib/atrial flutter: No (No afib/a flutter) Reason for no anticoag for AF/F on DC: Not Indicated Antithrombotic for ischemic stroke: Yes Exam - Constitutional Vitals: Temp Pulse Resp BP Pulse Ox 98.4 F 82 20 142/77 100 11/03/18 15:41 11/03/18 15:41 11/03/18 15:41 11/03/18 15:41 11/03/18 15:41 General appearance: Present: no acute distress, well-nourished - EENT Eyes: Present: PERRL, EOM intact - Neck Neck: Present: supple, normal ROM - Respiratory Respiratory effort: normal Respiratory: bilateral: diminished, negative: rales, rhonchi, wheezing - Cardiovascular Rhythm: regular Heart Sounds: Present: S1 & S2 - Extremities Extremities: no ischemia, No edema Plan Activity: advance as tolerated, fall precautions Diet: other (cardiac diet) Additional Instructions: Patient advised to see her private member of the legislative [employer] in 1 week Follow up with: ANA ARREDONDO MD [Primary Care Provider] - 7 Days DEDE MAURER MD [Staff Physician] - 7 Days Prescriptions: diphenhydrAMINE [Benadryl CAP] 25 mg PO Q6HR PRN #20 capsule PRN Reason: Itching
== END 2018-11-03 19:01 | disposition home or self-care (01) | DRG 65 ==
LOC: ED 10:46 → 4A 12:44
PROVIDERS: ADMIT Internal Medicine; ATTEND Internal Medicine
DX: I63.9 Cerebral infarction, unspecified (principal); I42.9 Cardiomyopathy, unspecified; Q21.1 Atrial septal defect; M19.90 Unspecified osteoarthritis, unspecified site; E78.5 Hyperlipidemia, unspecified; I10 Essential (primary) hypertension; K21.9 Gastro-esophageal reflux disease without esophagitis; J45.909 Unspecified asthma, uncomplicated; Z95.0 Presence of cardiac pacemaker; Z88.2 Allergy status to sulfonamides; Z79.899 Other long term (current) drug therapy
CPT/HCPCS: 36415; 70450; 70470; 71045; 80048; 80061; 82962; 84484; 85025; 85610; 85670; 85730; 93005; 93010; 93306; 93880; G0378; A9270-GY; J1650; Q9967

== ENCOUNTER 2020-07-07 09:43 | Emergency (ER) | payer MEDICARE ==
--- NOTE | 2020-07-07 10:20 | Event Note ---
ED Screening Note Date of service: 07/07/20 Time: 10:00 ED Screening Note: 74-year-old -[place] female presents to the emergency room for 1 month history of body aches intermittent shortness of breath recent loss of taste and smell and diarrhea. Last Covid test was New Year[facility] Stefani but never got the results. She does have a primary care provider Dr. Mcconnell but has not followed up with him. This initial assessment/diagnostic orders/clinical plan/treatment(s) is/are subject to change based on patients health status, clinical progression and re- assessment by fellow clinical providers in the ED. Further treatment and workup at subsequent clinical providers discretion. Patient/guardian urged not to elope from the ED as their condition may be serious if not clinically assessed and managed. Initial orders include:
--- NOTE | 2020-07-07 10:26 | XRay Report ---
CHEST PA AND LATERAL VIEWS INDICATION: Shortness of breath. COMPARISON: 11/01/2018 FINDINGS: Support devices: Unchanged Heart: Normal and unchanged Lungs/Pleura: Minimal parenchymal density in the lower lungs, most likely atelectasis, but developing pneumonia cannot be entirely excluded. IMPRESSION: 1. Mild by basilar disease. Suggest follow-up to exclude developing pneumonia. Signer Name: Maurilio Scott MD Signed: 07/07/2020 10:22 AM Workstation Name: [id number]
[2020-07-07 11:11] LABS: Basophils % (Auto) 0.2 % (0.0-1.8); Hematocrit 39.6 % (30.3-42.9); Hemoglobin 12.6 gm/dl (10.1-14.3); Lymphocytes # (Auto) 1.8 K/mm3 (1.2-5.4); Lymphocytes % (Auto) 28.8 % (13.4-35.0); Mean Corpuscular HGB Conc 32 % (30-34); Mean Corpuscular Volume 80 fl (79-97); Monocytes # (Auto) 0.4 K/mm3 (0.0-0.8); Monocytes % (Auto) 6.9 % (0.0-7.3); Platelet Count 300 K/mm3 (140-440); Red Blood Count 4.94 M/mm3 (3.65-5.03); Red Cell Distribution Width 13.8 % (13.2-15.2)
[2020-07-07 11:27] LABS: Albumin 4.4 g/dL (3.9-5); Calcium 9.3 mg/dL (8.4-10.2)
[2020-07-07 11:56] LABS: Bacteria,Urine 1+ /HPF (Negative); Bilirubin,Urine NEG (Negative); Blood,Urine SM (Negative); Color,Urine Yellow (Yellow); Hyaline Casts,Urine 7 /LPF; Mucus,Urine FEW /HPF; Urobilinogen,Urine < 2.0 mg/dL (<2.0)
--- NOTE | 2020-07-07 14:51 | Emergency Department Report ---
ED General Adult HPI - General Chief complaint: Upper Respiratory Infection Stated complaint: SOB/COUGH/COLD PUI?: Yes Time Seen by Provider: 07/07/20 14:49 Source: patient, RN notes reviewed, old records reviewed Mode of arrival: Ambulatory Limitations: No Limitations - History of Present Illness Initial comments: The patient was evaluated in the emergency department for symptoms described in the history of present illness. He/she was evaluated in the context of the global COVID-19 pandemic, which necessitated consideration that the patient might be at risk for infection with the virus that causes COVID-19. Institutional protocols and algorithms that pertain to the evaluation of patients at risk for COVID-19 are in a state of rapid change based on information released by regulatory bodies including the CDC and federal and state organizations. These policies and algorithms were followed during the patient's care in the emergency department. Please note that these policies, procedures and recommendations changed on a rapid basis. During the entire history and physical examination, I had on complete personal protective equipment. Primary CARE doctor: Dr. Bianca Arredondo Patient is a 74-year-old female. She is not known to myself previously. Patient has a history of cerebrovascular disease, hypertension. Patient presents to the ER with the complaints of feeling cold, legs feeling cold, dysuria, cough, malaise and fatigue. Reports 3 Covid test performed as an outpatient. Symptoms present for a few weeks. Denies severe headache, neck pain, chest pain. Positive abdominal cramping for a few weeks. Positive intermittent nausea. No vomiting. -: Gradual, week(s) Location: back, abdomen, left, right, lower extremity Quality: aching Consistency: intermittent Improves with: rest Worsens with: movement - Related Data Home Medications Medication Instructions Recorded Confirmed Last Taken Metoprolol [Lopressor TAB] 50 mg DAILY 03/30/13 11/03/18 10/22/15 08:00 50 mg Simvastatin 20 mg PO QDAY 03/30/13 11/03/18 10/22/15 08:00 amLODIPine 5 mg PO DAILY 03/30/13 11/03/18 10/22/15 08:00 Aspirin 81 mg PO DAILY 10/22/15 11/03/18 10/22/15 08:00 Levothyroxine 50 mcg PO DAILY 10/22/15 11/03/18 10/22/15 08:00 Triamterene 1.75 mg PO DAILY 10/22/15 11/03/18 10/22/15 08:00 Previous Rx's Medication Instructions Recorded Last Taken Type Omeprazole [PriLOSEC] 20 mg PO QDAY #30 05/04/13 10/21/15 08:00 Rx Amoxicillin [Trimox CAP] 500 mg PO BID #14 capsule 10/22/15 Unknown Rx diphenhydrAMINE [Benadryl CAP] 25 mg PO Q6HR PRN #20 capsule 11/03/18 Unknown Rx Acetaminophen [Non-Aspirin Extra 500 mg PO Q6HR PRN #30 tablet 07/07/20 Unknown Rx Strength] Albuterol Sulfate [Proair 90 mcg IH Q4HR PRN #2 aer.pow.ba 07/07/20 Unknown Rx Respiclick] Amoxicillin [Trimox CAP] 1,000 mg PO Q8H #28 capsule 07/07/20 Unknown Rx Azithromycin [Zithromax TAB] 250 mg PO QDAY #4 tablet 07/07/20 Unknown Rx Allergies Allergy/AdvReac Type Severity Reaction Status Date / Time Sulfa (Sulfonamide Allergy Severe Swelling Verified 05/04/13 07:36 Antibiotics) ED Review of Systems ROS: Stated complaint: SOB/COUGH/COLD Other details as noted in HPI Constitutional: malaise, weakness Eyes: denies: eye discharge ENT: congestion Respiratory: cough Cardiovascular: denies: chest pain Gastrointestinal: nausea Genitourinary: dysuria Musculoskeletal: myalgia Neurological: weakness Hematological/Lymphatic: denies: easy bleeding ED Past Medical Hx - Past Medical History Previous Medical History?: Yes Hx Hypertension: Yes (2006) Hx GERD: Yes Hx Renal Disease: No Hx Arthritis: Yes Hx Asthma: Yes - Surgical History Past Surgical History?: Yes Hx Pacemaker: Yes (PLACED 02/2009 MODEL NUM [id number] [employer] ) - Social History Smoking Status: Never Smoker Substance Use Type: None - Medications Home Medications: Home Medications Medication Instructions Recorded Confirmed Last Taken Type Metoprolol [Lopressor TAB] 50 mg DAILY 03/30/13 11/03/18 10/22/15 08:00 History 50 mg Simvastatin 20 mg PO QDAY 03/30/13 11/03/18 10/22/15 08:00 History amLODIPine 5 mg PO DAILY 03/30/13 11/03/18 10/22/15 08:00 History Omeprazole [PriLOSEC] 20 mg PO QDAY #30 05/04/13 11/03/18 10/21/15 08:00 Rx Amoxicillin [Trimox CAP] 500 mg PO BID #14 capsule 10/22/15 11/03/18 Unknown Rx Aspirin 81 mg PO DAILY 10/22/15 11/03/18 10/22/15 08:00 History Levothyroxine 50 mcg PO DAILY 10/22/15 11/03/18 10/22/15 08:00 History Triamterene 1.75 mg PO DAILY 10/22/15 11/03/18 10/22/15 08:00 History diphenhydrAMINE [Benadryl CAP] 25 mg PO Q6HR PRN #20 capsule 11/03/18 Unknown Rx Acetaminophen [Non-Aspirin Extra 500 mg PO Q6HR PRN #30 tablet 07/07/20 Unknown Rx Strength] Albuterol Sulfate [Proair 90 mcg IH Q4HR PRN #2 aer.pow.ba 07/07/20 Unknown Rx Respiclick] Amoxicillin [Trimox CAP] 1,000 mg PO Q8H #28 capsule 07/07/20 Unknown Rx Azithromycin [Zithromax TAB] 250 mg PO QDAY #4 tablet 07/07/20 Unknown Rx ED Physical Exam - General Limitations: No Limitations General appearance: alert, in no apparent distress - Head Head exam: Present: atraumatic, normocephalic - Eye Eye exam: Present: normal appearance, EOMI. Absent: nystagmus - ENT ENT exam: Present: normal exam, normal orophraynx, mucous membranes moist, normal external ear exam - Neck Neck exam: Present: normal inspection, full ROM. Absent: tenderness, meningismus - Respiratory Respiratory exam: Present: normal lung sounds bilaterally. Absent: respiratory distress, wheezes, rales, rhonchi, stridor, chest wall tenderness - Cardiovascular Cardiovascular Exam: Present: regular rate, normal rhythm, normal heart sounds. Absent: bradycardia, tachycardia, irregular rhythm, systolic murmur, diastolic murmur, rubs, gallop - GI/Abdominal GI/Abdominal exam: Present: soft. Absent: distended, tenderness, guarding, rebound, rigid, pulsatile mass - Extremities Exam Extremities exam: Present: normal inspection, full ROM, other (2+ pulses noted in the bilateral upper and lower extremities. There is no palpable cord. negative Homans sign. Muscular compartments are soft. The pelvis is stable.). Absent: pedal edema, calf tenderness - Back Exam Back exam: Present: normal inspection, full ROM. Absent: tenderness, CVA tenderness (R), CVA tenderness (L), paraspinal tenderness, vertebral tenderness - Neurological Exam Neurological exam: Present: alert, oriented X3, normal gait, other (No facial d nathan. Tongue midline. Extraocular movements intact bilaterally. Facial sensation intact to light touch in V1, V2, V3 distribution bilaterally. 5 and a 5 strength in 4 extremities. Sensation intact to light touch in 4 extremities.). Absent: motor sensory deficit - Psychiatric Psychiatric exam: Present: normal affect, normal mood - Skin Skin exam: Present: warm, dry, intact, normal color. Absent: rash ED Course Vital Signs 07/07/20 07/07/20 09:58 16:06 Temperature 98.1 F Pulse Rate 106 H 84 Respiratory 20 18 Rate Blood Pressure 147/71 Blood Pressure 124/84 [Left] O2 Sat by Pulse 95 98 Oximetry ED Medical Decision Making - Lab Data Result diagrams: 07/07/20 10:18 07/07/20 10:18 Vital Signs 07/07/20 07/07/20 09:58 16:06 Temperature 98.1 F Pulse Rate 106 H 84 Respiratory 20 18 Rate Blood Pressure 147/71 Blood Pressure 124/84 [Left] O2 Sat by Pulse 95 98 Oximetry Lab Results 07/07/20 07/07/20 07/07/20 Range/Units 10:18 10:18 11:20 WBC 6.4 (4.5-11.0) K/mm3 RBC 4.94 (3.65-5.03) M/mm3 Hgb 12.6 (10.1-14.3) gm/dl Hct 39.6 (30.3-42.9) % MCV 80 (79-97) fl MCH 26 L (28-32) pg MCHC 32 (30-34) % RDW 13.8 (13.2-15.2) % Plt Count 300 (140-440) K/mm3 Lymph % (Auto) 28.8 (13.4-35.0) % Isabella % (Auto) 6.9 (0.0-7.3) % Eos % (Auto) 0.0 (0.0-4.3) % Baso % (Auto) 0.2 (0.0-1.8) % Lymph # (Auto) 1.8 (1.2-5.4) K/mm3 Isabella # (Auto) 0.4 (0.0-0.8) K/mm3 Eos # (Auto) 0.0 (0.0-0.4) K/mm3 Baso # (Auto) 0.0 (0.0-0.1) K/mm3 Seg Neutrophils % 64.1 (40.0-70.0) % Seg Neutrophils # 4.1 (1.8-7.7) K/mm3 Sodium 134 L (137-145) mmol/L Potassium 4.2 (3.6-5.0) mmol/L Chloride 95.4 L (98-107) mmol/L Carbon Dioxide 25 (22-30) mmol/L Anion Gap 18 mmol/L BUN 16 (7-17) mg/dL Creatinine 1.1 (0.6-1.2) mg/dL Estimated GFR 59 ml/min BUN/Creatinine Ratio 15 % Glucose 90 (65-100) mg/dL Calcium 9.3 (8.4-10.2) mg/dL Total Bilirubin 0.40 (0.1-1.2) mg/dL AST 69 H (5-40) units/L ALT 46 (7-56) units/L Alkaline Phosphatase 156 H (35-129) units/L Total Protein 7.7 (6.3-8.2) g/dL Albumin 4.4 (3.9-5) g/dL Albumin/Globulin Ratio 1.3 % Urine Color Yellow (Yellow) Urine Turbidity Slightly-cloudy (Clear) Urine pH 5.0 (5.0-7.0) Ur Specific [place] 1.014 (1.003-1.030) Urine Protein 100 mg/dl (Negative) mg/dL Urine Glucose (UA) Neg (Negative) mg/dL Urine Ketones Neg (Negative) mg/dL Urine Blood Sm (Negative) Urine Nitrite Pos (Negative) Urine Bilirubin Neg (Negative) Urine Urobilinogen < 2.0 (<2.0) mg/dL Ur Leukocyte Esterase Neg (Negative) Urine WBC (Auto) 2.0 (0.0-6.0) /HPF Urine RBC (Auto) 2.0 (0.0-6.0) /HPF U Epithel Cells (Auto) 8.0 (0-13.0) /HPF Urine Bacteria (Auto) 1+ (Negative) /HPF Hyaline Casts 7 /LPF Urine Mucus Few /HPF - EKG Data -: EKG Interpreted by Ma EKG shows normal: sinus rhythm Rate: normal - EKG Data 07/07/20 16:28 Sinus rhythm, bradycardia, 56 bpm. Normal axis, QTC prolonged, left ventricular hypertrophy and motion artifact. Not a STEMI. - Radiology Data Radiology results: report reviewed, image reviewed Print Report Referring Physician: LYDIA HOLGUIN Patient Name: KATE ANDERSON Date of : 1945 Sex: Female Report Date: 2020-07-07 Report Status: Finalized Findings [facility] [address] [place] [address] XRay Report Signed Patient: KATE ANDERSON MR#: [id number] : 1945 Acct:[id number] Age/Sex: 74 / F ADM Date: 07/07/20 Loc: ED Attending Dr: Ordering Physician: ISABELLE ENCINAS Date of Service: 07/07/20 Procedure(s): XR chest routine 2V Accession Number(s): [id number] cc: ISABELLE ENCINAS Fluoro Time In Minutes: CHEST PA AND LATERAL VIEWS INDICATION: Shortness of breath. COMPARISON: 11/01/2018 FINDINGS: Support devices: Unchanged Heart: Normal and unchanged Lungs/Pleura: Minimal parenchymal density in the lower lungs, most likely atelectasis, but developing pneumonia cannot be entirel y excluded. IMPRESSION: 1. Mild by basilar disease. Suggest follow-up to exclude developing pneumonia. Signer Name: Maurilio Scott MD Signed: 07/07/2020 10:22 AM Workstation Name: [id number] Transcribed By: TM Dictated By: Maurilio Scott MD Electronically Authenticated By: Maurilio Scott MD Signed Date/Time: 07/07/20 1022 DD/ 1020 TD/TT: - Medical Decision Making Differential diagnosis, including but not limited to: COVID-19, urinary tract infection, bacterial pneumonia, viral syndrome Assessment and plan: 74-year-old female, presenting during the COVID-19 pandemic, likely presenting with COVID-19 symptoms. Patient was given trial of ambulation and did not desaturate. Her tachycardia has resolved, and she is afebrile with reassuring vital signs. She appears to be quite comfortable. This is most likely COVID-19. Patient approximately few weeks to 1 week into her course of illness. Does not meet criteria for admission or hospitalization at this time. Albuterol as needed, Tylenol as needed, antiemetic medications as needed, empiric antibiotics to cover pyuria, as well as pulmonary pathology. Return precautions are re viewed Critical care attestation.: If time is entered above; I have spent that time in minutes in the direct care of this critically ill patient, excluding procedure time. ED Disposition Clinical Impression: Suspected 2019 novel coronavirus infection, Pyuria Disposition: TO HOME OR SELFCARE Is pt being admited?: No Does the pt Need Aspirin: No Condition: Good Instructions: COVID-19, Urinary Tract Infection, Adult Additional Instructions: As we discussed, the patient most likely has novel coronavirus/COVID. the symptoms of COVID will typically persist 10 to 14 days. There is no cure at this time for COVID. Please make certain to self isolate and self quarantine, follow-up with an outpatient primary care doctor within the next 3 to 5 days, wash hands with soap and water frequently, thoroughly and often, patient may take the prescribed medications as needed and directed. Advance diet and drink plenty of fluids as tolerated. Avoid interactions with the very elderly, very young, and those with chronic medical conditions. Return to the emergency room right away with new pain, worsening pain, migration of pain, projectile vomiting, change in mental status, confusion, inability to tolerate liquid feeds, new, worsened or different symptoms not present on the initial emergency room evaluation. Urinalysis suggested urinary tract infection, prescribed antibiotics are appropriate for initial urinary tract infection, please follow-up with your primary care physician. Referrals: ANA ARREDONDO MD [Staff Physician] - 3-5 Days
[2020-07-07] MEDS ORDERED: ACETAMINOPHEN 325 MG TAB PO ONE (15:35)
[2020-07-07 16:07] VITALS: BP 124/84
[2020-07-07] MEDS ORDERED: AZITHROMYCIN 250 MG TAB PO ONE (16:45)
[2020-07-07] MEDS ORDERED: AMOXICILLIN 500 MG CAP PO ONE (16:45)
== END 2020-07-07 17:30 | disposition home or self-care (01) ==
LOC: ED 09:43
DX: R82.81 Pyuria (principal); Z20.828 Contact with and (suspected) exposure to other viral communicable diseases; R05 Cough; R30.0 Dysuria; I10 Essential (primary) hypertension; K21.9 Gastro-esophageal reflux disease without esophagitis; M19.91 Primary osteoarthritis, unspecified site; J45.909 Unspecified asthma, uncomplicated; Z98.890 Other specified postprocedural states; Z79.2 Long term (current) use of antibiotics; Z79.899 Other long term (current) drug therapy; Z88.2 Allergy status to sulfonamides
CPT/HCPCS: 36415; 71046; 80053; 81001; 85025

== ENCOUNTER 2020-09-20 11:22 | Emergency (ER) | payer MEDICARE, OTHER ==
[2020-09-20 11:35] VITALS: BP 151/84
[2020-09-20] MEDS ORDERED: TETANUS,DIPH,PERTUSS(ACELL) VACCINE 0.5 ML SYRINGE IM ONE (12:26)
[2020-09-20] MEDS ORDERED: NEOMY 3.5 MG/BACIT 400 UNITS/POLY B 5000 UNITS/GM OINT PACKET TP ONE (12:26)
--- NOTE | 2020-09-20 12:30 | Event Note ---
ED Screening Note Date of service: 09/20/20 Time: 12:29 ED Screening Note: 75-year-old female patient presents emergency department with complaints of bilateral liu to the dorsum of her feet occurring 6 days ago. Right foot is more painful than left foot. She is concerned about early infection. No known history of diabetes. Cannot recall last tetanus immunization. General: Awake, appropriately interactive, no acute distress. Neck: Supple. Full range of motion intact. Cardiovascular: Normal peripheral perfusion. Pulmonary: No respiratory distress. Patient is speaking normally without use of accessory muscles. Skin: Second-degree liu noted to the dorsal surface of both feet. Neurological: No facial asymmetry. Speech is clear. Follows commands. Patient is alert and oriented. Musculoskeletal: Moves all four extremities spontaneously with normal range of motion. Psych: Cooperative. Appropriate mood and affect. I have greeted and performed a focused rapid initial assessment of this patient. A comprehensive ED assessment and evaluation of the patient, analysis of all te st results, and completion of the medical decision-making process will be conducted by additional ED providers. This initial assessment/diagnostic orders/clinical plan/treatment(s) is/are subject to change based on patients health status, clinical progression and re-assessment. Further treatment and workup at subsequent clinical provider's discretion. Patient/guardian urged not to elope from the ED as their condition may be serious if not clinically assessed and managed.
--- NOTE | 2020-09-20 13:29 | Emergency Department Report ---
ED Burn/Smoke HPI - General Chief complaint: Burn/Smoke Inhalation Stated complaint: BILATERAL FOOT BURN Time Seen by Provider: 09/20/20 13:28 Source: patient Mode of arrival: Ambulatory Limitations: No Limitations - History of Present Illness Initial comments: 75 yr old female with pmhx of HPLD, thyroid disease, HTN and s/p CVA presents to ED with c/o burn to dorsal aspect of both feet. Pt states that the incident occurred 6 days ago. She states she had hot water boiling on stove and when she picked it up off stove it fell out of her hands onto her feet. She reports blistering, swelling, drainage and mild pain to burn areas. She denies any pus drainage, bruising or numbness or tingling. She states that she has been trying to follow-up with her primary care doctor but has been unsuccessful. She is not up-to-date on her immunizations. Complaint: burn -: days(s) (6) - Related Data Home Medications Medication Instructions Recorded Confirmed Last Taken Metoprolol [Lopressor TAB] 50 mg DAILY 03/30/13 11/03/18 10/22/15 08:00 50 mg Simvastatin 20 mg PO QDAY 03/30/13 11/03/18 10/22/15 08:00 amLODIPine 5 mg PO DAILY 03/30/13 11/03/18 10/22/15 08:00 Aspirin 81 mg PO DAILY 10/22/15 11/03/18 10/22/15 08:00 Levothyroxine 50 mcg PO DAILY 10/22/15 11/03/18 10/22/15 08:00 Triamterene 1.75 mg PO DAILY 10/22/15 11/03/18 10/22/15 08:00 Previous Rx's Medication Instructions Recorded Last Taken Type Omeprazole [PriLOSEC] 20 mg PO QDAY #30 05/04/13 10/21/15 08:00 Rx diphenhydrAMINE [Benadryl CAP] 25 mg PO Q6HR PRN #20 capsule 11/03/18 Unknown Rx Albuterol Sulfate [Proair 90 mcg IH Q4HR PRN #2 aer.pow.ba 07/07/20 Unknown Rx Respiclick] Azithromycin [Zithromax TAB] 250 mg PO QDAY #4 tablet 07/07/20 Unknown Rx Acetaminophen [Non-Aspirin Extra 500 mg PO Q6HR PRN #30 tablet 09/20/20 Unknown Rx Strength] Bacitracin Zinc/Polymyxin B 1 applic TP TID #90 oint...g. 09/20/20 Unknown Rx [Double Antibiotic Ointment] cephALEXin [Keflex] 500 mg PO Q6HR #40 capsule 09/20/20 Unknown Rx Allergies Allergy/AdvReac Type Severity Reaction Status Date / Time Sulfa (Sulfonamide Allergy Severe Swelling Verified 09/20/20 11:34 Antibiotics) Burn HPI - History Stated Complaint: BILATERAL FOOT BURN Chief Complaint: Burn/Smoke Inhalation Time Seen by Provider: 09/20/20 13:28 - Home Meds and Allergies Home Medications: Home Medications Medication Instructions Recorded Confirmed Last Taken Metoprolol [Lopressor TAB] 50 mg DAILY 03/30/13 11/03/18 10/22/15 08:00 50 mg Simvastatin 20 mg PO QDAY 03/30/13 11/03/18 10/22/15 08:00 amLODIPine 5 mg PO DAILY 03/30/13 11/03/18 10/22/15 08:00 Aspirin 81 mg PO DAILY 10/22/15 11/03/18 10/22/15 08:00 Levothyroxine 50 mcg PO DAILY 10/22/15 11/03/18 10/22/15 08:00 Triamterene 1.75 mg PO DAILY 10/22/15 11/03/18 10/22/15 08:00 Previous Rx's Medication Instructions Recorded Last Taken Type Omeprazole [PriLOSEC] 20 mg PO QDAY #30 05/04/13 10/21/15 08:00 Rx diphenhydrAMINE [Benadryl CAP] 25 mg PO Q6HR PRN #20 capsule 11/03/18 Unknown Rx Albuterol Sulfate [Proair 90 mcg IH Q4HR PRN #2 aer.pow.ba 07/07/20 Unknown Rx Respiclick] Azithromycin [Zithromax TAB] 250 mg PO QDAY #4 tablet 07/07/20 Unknown Rx Acetaminophen [Non-Aspirin Extra 500 mg PO Q6HR PRN #30 tablet 09/20/20 Unknown Rx Strength] Bacitracin Zinc/Polymyxin B 1 applic TP TID #90 oint...g. 09/20/20 Unknown Rx [Double Antibiotic Ointment] cephALEXin [Keflex] 500 mg PO Q6HR #40 capsule 09/20/20 Unknown Rx Allergies/Adverse Reactions: Allergies Allergy/AdvReac Type Severity Reaction Status Date / Time Sulfa (Sulfonamide Allergy Severe Swelling Verified 09/20/20 11:34 Antibiotics) ED Review of Systems ROS: Stated complaint: BILATERAL FOOT BURN Other details as noted in HPI Comment: All other systems reviewed and negative Constitutional: denies: chills, diaphoresis, fever, malaise, weakness Eyes: denies: eye pain, eye discharge, vision change ENT: denies: ear pain, throat pain Respiratory: denies: cough, shortness of breath, SOB with exertion, SOB at rest, wheezing Cardiovascular: denies: chest pain, palpitations Gastrointestinal: denies: abdominal pain, nausea, vomiting, diarrhea, constipation, hematemesis, hematochezia Genitourinary: denies: urgency, dysuria, discharge Musculoskeletal: denies: back pain, joint swelling, arthralgia Skin: other (burn to feet) Psychiatric: denies: anxiety, depression, auditory hallucinations, visual hallucinations, homicidal thoughts, suicidal thoughts Hematological/Lymphatic: denies: easy bleeding, easy bruising ED Past Medical Hx - Past Medical History Hx Hypertension: Yes (2006) Hx GERD: Yes Hx Renal Disease: No Hx Arthritis: Yes Hx Asthma: Yes - Surgical History Hx Pacemaker: Yes (PLACED 02/2009 MODEL NUM [id number] ERPLY ) - Social History Smoking Status: Never Smoker Substance Use Type: None - Medications Home Medications: Home Medications Medication Instructions Recorded Confirmed Last Taken Type Metoprolol [Lopressor TAB] 50 mg DAILY 03/30/13 11/03/18 10/22/15 08:00 History 50 mg Simvastatin 20 mg PO QDAY 03/30/13 11/03/18 10/22/15 08:00 History amLODIPine 5 mg PO DAILY 03/30/13 11/03/18 10/22/15 08:00 History Omeprazole [PriLOSEC] 20 mg PO QDAY #30 05/04/13 11/03/18 10/21/15 08:00 Rx Aspirin 81 mg PO DAILY 10/22/15 11/03/18 10/22/15 08:00 History Levothyroxine 50 mcg PO DAILY 10/22/15 11/03/18 10/22/15 08:00 History Triamterene 1.75 mg PO DAILY 10/22/15 11/03/18 10/22/15 08:00 History diphenhydrAMINE [Benadryl CAP] 25 mg PO Q6HR PRN #20 capsule 11/03/18 Unknown Rx Albuterol Sulfate [Proair 90 mcg IH Q4HR PRN #2 aer.pow.ba 07/07/20 Unknown Rx Respiclick] Azithromycin [Zithromax TAB] 250 mg PO QDAY #4 tablet 07/07/20 Unknown Rx Acetaminophen [Non-Aspirin Extra 500 mg PO Q6HR PRN #30 tablet 09/20/20 Unknown Rx Strength] Bacitracin Zinc/Polymyxin B 1 applic TP TID #90 oint...g. 09/20/20 Unknown Rx [Double Antibiotic Ointment] cephALEXin [Keflex] 500 mg PO Q6HR #40 capsule 09/20/20 Unknown Rx ED Physical Exam - General Limitations: No Limitations General appearance: alert, in no apparent distress - Respiratory Respiratory exam: Present: normal lung sounds bilaterally. Absent: respiratory distress - Cardiovascular Cardiovascular Exam: Present: regular rate, normal rhythm, normal heart sounds - Extremities Exam Extremities exam: Present: full ROM, normal capillary refill, other - Neurological Exam Neurological exam: Present: alert, oriented X3, CN II-XII intact, normal gait - Psychiatric Psychiatric exam: Present: normal affect, normal mood - Skin Skin exam: Present: other - Other Other exam information: 2nd degree liu noted to dorsal aspect both feet, right worse than left; On right foot - mainly distal aspect of foot and on dorsal of all toes; on left mainly dorsal left great toe; ruptured blisters noted with mild clear drainage; no pus drainage; there is mild erythema and ttp without streaking noted around the first MTP joint on right foot and there is mild ttp mainly around MTP joint left great toe but no erythema or bruising noted. There is mild swelling mainly around the liu. There is no circumferential liu. Patient has full range of motion of her feet and her toes. Dorsalis pedis pulse normal. Cap refill is normal. ED Course Vital Signs 09/20/20 11:33 Temperature 98.2 F Pulse Rate 80 Respiratory 20 Rate Blood Pressure 151/84 O2 Sat by Pulse 100 Oximetry ED Medical Decision Making - Medical Decision Making Patient with a secondary burn to the dorsal aspect of both feet. The right toe worse than the left, mainly distally and over the toes; no circumferential burn; blisters have ruptured with some mild drainage but no pus; There is concern for possible early infection at base of right great toe but otherwise there is no significant cellulitis or swelling. There is no evidence of compartment syndrome. Patient tetanus updated in the ER. Bacitracin dressing applied. Patient will be started on Keflex, she will be given a prescription for bacitracin to use 3 times a day. Burn care was discussed with patient, recommend she follows up with her primary care doctor next Thursday or Thursday for wound check. Worsening signs and symptoms discussed with patient. She expressed understanding of instructions and agree with plan. Patient overall well-appearing, nontoxic and not in any acute distress. She is neurologically intact with a normal gait in the ER. her vital signs are stable. Patient was stable at time of discharge. Critical care attestation.: If time is entered above; I have spent that time in minutes in the direct care of this critically ill patient, excluding procedure time. ED Disposition Clinical Impression: Second degree burn of foot Disposition: DC-01 TO HOME OR SELFCARE Is pt being admited?: No Does the pt Need Aspirin: No Condition: Stable Instructions: Second-Degree Burn, Adult Additional Instructions: Keep wounds clean daily with soap and water. Do not use peroxide or alcohol. Apply the bacitracin ointment as prescribed. Take the Keflex as prescribed. Follow-up with your primary care doctor next Thursday or Thursday for wound check. Return to the ER if your symptoms changes or worsens in any way. Prescriptions: Bacitracin Zinc/Polymyxin B [Double Antibiotic Ointment] 1 applic TP TID #90 oint...g. cephALEXin [Keflex] 500 mg PO Q6HR #40 capsule Acetaminophen [Non-Aspirin Extra Strength] 500 mg PO Q6HR PRN #30 tablet PRN Reason: Pain , Severe (7-10) Referrals: PRIMARY CARE, [Primary Care Provider] - 3-5 Days Time of Disposition: 13:42
== END 2020-09-20 14:33 | disposition home or self-care (01) ==
LOC: ED 11:22
DX: T25.222A Burn of second degree of left foot, initial encounter (principal); T25.221A Burn of second degree of right foot, initial encounter; I10 Essential (primary) hypertension; K21.9 Gastro-esophageal reflux disease without esophagitis; M19.91 Primary osteoarthritis, unspecified site; J45.909 Unspecified asthma, uncomplicated; Z98.890 Other specified postprocedural states; Z79.899 Other long term (current) drug therapy; Z88.2 Allergy status to sulfonamides; X12.XXXA Contact with other hot fluids, initial encounter; Y93.89 Activity, other specified; Y92.89 Other specified places as the place of occurrence of the external cause; Y99.8 Other external cause status
CPT/HCPCS: 16020; 90471; 90715; 99282; A6250

== ENCOUNTER 2020-10-08 11:09 | Outpatient (CLI) | payer MEDICARE, OTHER ==
[2020-10-08] MEDS ORDERED: LIDOCAINE (4%) 40 MG/ML TOPICAL SOLN 50 ML BOTTLE TP ONE ×2 (17:00→17:22)
== END 2020-10-08 11:10 | disposition home or self-care (01) ==
LOC: WOUND 11:09
PROVIDERS: ATTEND Surgery
DX: T25.231A Burn of second degree of right toe(s) (nail), initial encounter (principal); E78.00 Pure hypercholesterolemia, unspecified; I10 Essential (primary) hypertension; F41.9 Anxiety disorder, unspecified; Z90.710 Acquired absence of both cervix and uterus; Z87.891 Personal history of nicotine dependence; X12.XXXA Contact with other hot fluids, initial encounter; Y93.89 Activity, other specified; Y92.89 Other specified places as the place of occurrence of the external cause; Y99.8 Other external cause status
CPT/HCPCS: 99215; G0463

== ENCOUNTER 2020-10-22 10:49 | Outpatient (CLI) | payer MEDICARE, OTHER ==
[2020-10-22] MEDS ORDERED: LIDOCAINE (4%) 40 MG/ML TOPICAL SOLN 50 ML BOTTLE TP ONE (10:54)
== END 2020-10-22 10:50 | disposition home or self-care (01) ==
LOC: WOUND 10:49
PROVIDERS: ATTEND Surgery
DX: T25.221D Burn of second degree of right foot, subsequent encounter (principal); T25.222D Burn of second degree of left foot, subsequent encounter; E78.00 Pure hypercholesterolemia, unspecified; I10 Essential (primary) hypertension; F41.9 Anxiety disorder, unspecified; Z90.710 Acquired absence of both cervix and uterus; Z87.891 Personal history of nicotine dependence; X12.XXXD Contact with other hot fluids, subsequent encounter
CPT/HCPCS: 99212; G0463